=== PATIENT | male | born 1960 | race Caucasian/White ===

== ENCOUNTER → 2016-07-29 | Outpatient (CLI) | payer BC ==
--- NOTE | 2016-07-30 09:49 | XR ---
Right hip HISTORY: Right hip pain 2 views of the right hip Bone mineralization, joint spaces and alignment are maintained. Soft tissues are normal. IMPRESSION: Normal right hip. Hip MRI may be of benefit.
--- NOTE | 2016-07-30 09:50 | XR ---
Lumbosacral spine HISTORY: Right hip pain, low back pain 5 views of the lumbar spine submitted. No comparisons No spondylolysis or spondylolisthesis. Lumbar vertebral bodies show preserved height. Bone mineraliz ation is mildly reduced. There is loss of disc height at L5-S1 with associated vacuum phenomenon, spo ndylosis is noted. Sclerosis present in the posterior elements IMPRESSION: Degenerative disc disease, facet arthropathy, osteopenia
== END | disposition home or self-care (01) ==
LOC: RADXRYALE 08:49
PROVIDERS: ATTEND Internal Medicine
DX: M51.17 Intervertebral disc disorders with radiculopathy, lumbosacral region (principal); M46.87 Other specified inflammatory spondylopathies, lumbosacral region; M85.88 Other specified disorders of bone density and structure, other site
CPT/HCPCS: 72110; 73502

== ENCOUNTER 2017-10-10 15:42 | Emergency (ER) | payer BC ==
[2017-10-10 15:48] VITALS: BP 186/93; PULSE 68; RESP 18; TEMP 98.1
[2017-10-10] MEDS ORDERED: DIPH,PERTUS(ACELL)TETVAC-LF 0.5 ML VIAL IM ONE (16:11)
--- NOTE | 2017-10-10 16:24 | ED ---
Animal Bite HPI - General Chief Complaint: Animal Bite Stated Complaint: DOG BITE MIDDLE FINGER RT HAND Time Seen by Provider: 10/10/17 15:59 Source: patient, RN notes reviewed Mode of arrival: ambulatory Limitations: no limitations - History of Present Illness Initial Comments: This a 57-year-old male presents emergency Department chief complaint of dog bite. Patient states his own dog bit his hand. Patient has noted laceration to right hand third digit. Patient is right-hand dominant. Patient's unsure when his last tetanus was. Patient states his dog is up-to-date vaccinations. Patient has full range of motion of his finger. - Related Data Previous Rx's Medication Instructions Recorded Amoxicillin/Potassium Clav 1 tab PO Q12HR #20 tab 10/10/17 [Augmentin 875-125 Tablet] Allergies Allergy/AdvReac Type Severity Reaction Status Date / Time No Known Allergies Allergy Verified 10/10/17 15:48 Review of Systems ROS Statement: Those systems with pertinent positive or pertinent negative responses have been documented in the HPI. ROS Other: All systems not noted in ROS Statement are negative. Past Medical History Past Medical History: No Reported History History of Any Multi-Drug Resistant Organisms: None Reported Past Surgical History: No Surgical Hx Reported Past Psychological History: No Psychological Hx Reported Smoking Status: Never smoker Past Alcohol Use History: None Reported Past Drug Use History: None Reported General Exam Limitations: no limitations General appearance: alert, in no apparent distress Head exam: Present: atraumatic, normocephalic, normal inspection Respiratory exam: Present: normal lung sounds bilaterally. Absent: respiratory distress, wheezes, rales, rhonchi, stridor Cardiovascular Exam: Present: regular rate, normal rhythm, normal heart sounds. Absent: systolic murmur, diastolic murmur, rubs, gallop, clicks Extremities exam: Present: other (Right hand third digit there is a 3 cm V- shaped laceration patient for range of motion there is no tendon involvement patient is neurovascularly intact) Skin exam: Present: warm, dry Course Vital Signs 10/10/17 15:45 Temperature 98.1 F Pulse Rate 68 Respiratory 18 Rate Blood Pressure 186/93 O2 Sat by Pulse 97 Oximetry Procedures - Laceration Laceration #1 Time Out Performed: Yes Indication: laceration Site: hand (Right hand third digit) Size (cm): 3 Description: irregular Depth: simple, single layer Anesthetic Used: lidocaine 1%, without epi Anesthesia Technique: local infiltration Amount (mls): 4 Pre-repair: wound explored, irrigated extensively, deep structures intact Type of Sutures: nylon Size of Sutures: 4-0 Number of Sutures: 4 Technique: simple, interrupted Patient Tolerated Procedure: well, no complications Medical Decision Making - Medical Decision Making 57-year-old male present emergency from for abdominal bite to his right hand third digit. Patient dog is up-to-date vaccination. Patient was updated on his tetanus. He'll be discharged with Augmentin for antibiotic prophylaxis. Patient had 3 cm-laceration which was loosely approximated. I did explain that the laceration was left loosely open for infection. Patient follow-up tomorrow for recheck and return for any worsening symptoms. Disposition Clinical Impression: Dog bite, Finger laceration Disposition: HOME SELF-CARE Condition: Stable Instructions: Animal Bite (ED) Additional Instructions: Please return to the Emergency Department if symptoms worsen or any other concerns. Prescriptions: Amoxicillin/Potassium Clav [Augmentin 875-125 Tablet] 1 tab PO Q12HR #20 tab Is patient prescribed a controlled substance at d/c from ED?: No Referrals: Latrice Marsh MD [Primary Care Provider] - 1-2 days Time of Disposition: 16:41
--- NOTE | 2017-10-10 16:45 | XR ---
EXAMINATION TYPE: XR finger RT DATE OF EXAM: 10/10/2017 COMPARISON: NONE HISTORY: Pain TECHNIQUE: 3 view right middle finger FINDINGS: There appears be some soft tissue swelling. Degenerative joint changes are present. A displaced fracture is not identified. IMPRESSION: 1. No acute osseous abnormality. 2. Follow-up exam can be performed 7-10 days from acute trauma for continued pain.
== END 2017-10-10 17:01 | disposition home or self-care (01) ==
LOC: EC 15:42
DX: S61.212A Laceration without foreign body of right middle finger without damage to nail, initial encounter (principal); Z23 Encounter for immunization; W54.0XXA Bitten by dog, initial encounter; Y92.009 Unspecified place in unspecified non-institutional (private) residence as the place of occurrence of the external cause
CPT/HCPCS: 12002; 90471; 90715; 99283

== ENCOUNTER → 2019-08-07 | Outpatient (CLI) | payer BC ==
[2019-08-07 17:42] LABS: Basophils % (A) 1 %; Eosinophils # (A) 0.1 k/uL (0-0.7); Eosinophils % (A) 1 %; HGB 13.9 gm/dL (13.0-17.5); Lymphocytes # (A) 2.3 k/uL (1.0-4.8); Lymphocytes % (A) 30 %; MCH 31.1 pg (25.0-35.0); MCHC 33.9 g/dL (31.0-37.0); Mean Platelet Volume 7.3; Monocytes # (A) 0.6 k/uL (0-1.0); Monocytes % (A) 7 %; Neutrophils # (A) 4.6 k/uL (1.3-7.7); Neutrophils % (A) 59 %; Platelet Count 276 k/uL (150-450); RBC 4.45 m/uL (4.30-5.90); RDW 12.6 % (11.5-15.5); WBC 7.8 k/uL (3.8-10.6)
[2019-08-07 17:44] LABS: African American GFR (CKD) >90 (>60 ml/min/1.73 sqM); Anion Gap 6 mmol/L; Blood Urea Nitrogen 16 mg/dL (9-20); Calcium 9.3 mg/dL (8.4-10.2); Carbon Dioxide 29 mmol/L (22-30); Chloride 101 mmol/L (98-107); Glucose 89 mg/dL (74-99); Non-African American GFR(CKD) >90 (>60 ml/min/1.73 sqM); Potassium 4.4 mmol/L (3.5-5.1); Sodium 136 mmol/L (137-145)
== END | disposition home or self-care (01) ==
LOC: LABPAT 16:48
PROVIDERS: ATTEND Urology
DX: Z01.818 Encounter for other preprocedural examination (principal); C61 Malignant neoplasm of prostate; I10 Essential (primary) hypertension; E86.0 Dehydration; Z01.812 Encounter for preprocedural laboratory examination
CPT/HCPCS: 36415; 80048; 85025; 86850; 86900; 86901; 93005

== ENCOUNTER 2019-08-15 09:56 | Day surgery (SDC) | payer BC ==
[2019-08-09 15:13] VITALS: BMI 30.9
--- NOTE | 2019-08-15 08:25 | P.GSHP ---
History of Present Illness H&P Date: 08/09/19 Chief Complaint: Prostate cancer The patient is a 58-year-old white male whose PSA level urvashi from 3.565 in June 2016 to 5.560 in June 2019. He has no family history of prostate cancer, and was relatively free of voiding symptoms. MEGAN revealed left-sided asymmetrical enlargement. Prostate ultrasound revealed a prostate volume of 24.4 mL, with an 11 mm hypoechoic lesion seen within the left peripheral zone. 3 of 12 biopsies showed Santino 7 adenocarcinoma. [place] 4+3 disease was seen at the left lateral base and left mid, while the left base biopsy showed Santino 3+4 disease (60%). The Polaris score is 3.3. I had a lengthy discussion with the patient and his family, and he has elected to undergo a right nerve sparing robotic-assisted laparoscopic prostatectomy (RALP) with bilateral pelvic lymphadenectomy. - Constitutional Constitutional: Denies chills, Denies fever - Cardiovascular Cardiovascular: Reports high blood pressure - Gastrointestinal Gastrointestinal: Denies nausea, Denies vomiting - Genitourinary (Male) Genitourinary: Reports as per HPI, Denies erectile dysfunction Past Medical History Past Medical History: Hypertension Additional Past Medical History / Comment(s): Prostate Cancer History of Any Multi-Drug Resistant Organisms: None Reported Additional Past Surgical History / Comment(s): Open right inguinal hernia repair in 2014 Past Psychological History: No Psychological Hx Reported Smoking Status: Never smoker Past Alcohol Use History: None Reported Past Drug Use History: None Reported - Past Family History Father Family Medical History: Cancer Medications and Allergies Home Medications Medication Instructions Recorded Confirmed Type Lisinopril [Prinivil] 10 mg PO HS 08/09/19 08/09/19 History Allergies Allergy/AdvReac Type Severity Reaction Status Date / Time No Known Allergies Allergy Verified 08/09/19 15:06 Surgical - Exam - General well developed, well nourished, no distress - Neck no masses, trachea midline - Respiratory normal respiratory effort - Abdomen Abdomen: soft, non tender, no guarding, no rigid, no rebound - Genitourinary normal penis with no external lesions, testicles non-tender right: scrotal mass/hydrocele - Rectum Rectum: normal sphincter tone, no masses, other (Prostate asymmetry L>R) - Psychiatric oriented to time, oriented to person, oriented to place, speech is normal, memory intact Assessment and Plan (1) Malignant neoplasm of prostate Status: Acute Code(s): C61 - MALIGNANT NEOPLASM OF PROSTATE SNOMED Code(s): 465892694 Plan: Right nerve sparing RALP with bilateral pelvic lymphadenectomy. I explained in great detail the potential risks, which include anesthesia, bleeding, infection, bowel injury, neurovascular injury, urinary leak, lymphocele, vesical neck contracture, and urethral stricture. The possibility of post-prostatectomy urinary incontinence and erectile dysfunction despite preservation of the right neurovascular bundle was discussed in detail. He is aware of the possible need to convert to an open procedure. He has also been advised of the possibility of treatment failure, and the possible need for adjuvant therapy.
[~2019-08-15 09:56] MED LIST: DEXAMETHASONE SOD PHOSPHATE 10 MG/ML 1 ML VIAL IV ONE; HEPARIN SODIUM,PORCINE 5,000 UNIT/ML 1 ML VIAL SQ ONE; LIDOCAINE 1% (10MG/ML) FOR IV START INTRADERMA PRN; MIDAZOLAM 2 MG/2 ML VIAL IV PRN; ONDANSETRON 4 MG/2 ML VIAL IVP ONE; fentaNYL (PF) 50 MCG/ML 2 ML AMP IV PRN
[2019-08-15] MEDS ORDERED: LIDOCAINE 1% (10MG/ML) FOR IV START INTRADERMA ONE (10:40)
[2019-08-15] MEDS: LACTATED RINGERS 1,000 ML IV SCH (10:40)
[2019-08-15] MEDS ORDERED: MIDAZOLAM 2 MG/2 ML VIAL ONE (11:22)
[2019-08-15] MEDS ORDERED: PROPOFOL 10 MG/ML 20 ML VIAL IV ONE (11:22)
[2019-08-15] MEDS ORDERED: GLYCOPYRROLATE 0.2 MG/ML 2 ML VIAL ONE (11:22)
[2019-08-15] MEDS ORDERED: SUCCINYLCHOLINE CHLORIDE 100 MG/5 ML SYR IV ONE (11:22)
[2019-08-15] MEDS ORDERED: NEOSTIGMINE 1 MG/ML 10 ML VIAL ONE (11:22)
[2019-08-15] MEDS ORDERED: HYDROmorphone (PF) 1 MG/ML ONE (11:22)
[2019-08-15] MEDS ORDERED: fentaNYL (PF) 50 MCG/ML 2 ML AMP ONE (11:22)
[2019-08-15] MEDS ORDERED: LIDOCAINE 1% INJ 10MG/ML (20 ML MDV) ONE (11:22)
[2019-08-15] MEDS ORDERED: ROCURONIUM BROMIDE 10 MG/ML 5 ML VIAL IV ONE (11:22)
[2019-08-15] MEDS ORDERED: BUPIVACAINE (PF) 0.25% 30 ML VIAL SQ ONE ×4 (12:06→15:55)
[2019-08-15] MEDS ORDERED: LACTATED RINGERS 1,000 ML IV ONE ×2 (15:34→15:54)
[2019-08-15] MEDS ORDERED: ONDANSETRON 4 MG/2 ML VIAL IVP PRN (15:55)
[2019-08-15] MEDS ORDERED: HYDROmorphone 1 MG/ML 1 ML SYRINGE IVP PRN (15:55)
--- NOTE | 2019-08-15 16:25 | P.OP ---
Date of Procedure: 08/15/19 Preoperative Diagnosis: Adenocarcinoma of the Prostate Postoperative Diagnosis: Same Procedure(s) Performed: Right nerve-sparing Robotic-assisted laparoscopic prostatectomy (RALP) with bilateral pelvic lymphadenectomy Anesthesia: BE Surgeon: Ashwin Allen Enameler #1: Porfirio Contreras Estimated Blood Loss (ml): 250 IV fluids (ml): 1,900 Condition: stable Disposition: PACU Indications for Procedure: The patient is a 58-year-old white male whose PSA level urvashi from 3.565 in June 2016 to 5.560 in June 2019. He has no family history of prostate cancer, and was relatively free of voiding symptoms. MEGAN revealed left-sided asymmetrical enlargement. Prostate ultrasound revealed a prostate volume of 24.4 mL, with an 11 mm hypoechoic lesion seen within the left peripheral zone. 3 of 12 biopsies showed Santino 7 adenocarcinoma. [place] 4+3 disease was seen at the left lateral base and left mid, while the left base biopsy showed [place] 3+4 disease (60%). The Polaris score is 3.3. I had a lengthy discussion with the patient and his family, and he has elected to undergo a right nerve sparing robotic-assisted laparoscopic prostatectomy (RALP) with bilateral pelvic lymphadenectomy. Operative Findings: No evidence of extraprostatic disease. Description of Procedure: The patient was taken in the operating room and placed in the dorsal lithotomy position, with his legs supported in Dante stirrups. He was carefully positioned on a beanbag for stability. The abdomen and external genitalia were prepped and draped sterilely. A Busch catheter was inserted. The Veress needle was passed through the anterior abdominal wall immediately cephalad to the umbilicus, and insufflation was performed to a pressure of 20 mm Hg. Once insufflation was performed, the Veress needle was removed and a supraumbilical incision was made, through which a 12 mm camera port was placed. Under camera guidance, 3 8 mm robotic ports were placed, 2 on the left and one on the right. An additional 12 mm port was placed on the right lateral side for use as an trust operations assistant port. A 5 mm port was placed to the right of the camera port for suction. The patient was placed in Trendelenburg position, and docking was then performed to the [email or web address] system utilizing a 4-arm approach. The abdomen was examined. The sigmoid colon was mobilized out of the pelvis. The peritoneum was incised lateral to the medial umbilical ligaments bilaterally, exposing the pubis. The peritoneum was then incised across the midline, allowing the bladder flap to be taken down. The endopelvic fascia was opened bilaterally, and muscular attachments from the urogenital diaphragm were swept away from the prostate. Bilateral pelvic lymphadenectomies were performed in the standard fashion. The peritoneal incisions were extended in a cephalad direction, and the vas deferens were divided bilaterally. Margins of dissection were the bifurcation of the iliac vessels proximally, the circumflex iliac vein distally, the external iliac artery laterally, and the obturator nerve medially. A combination of sharp and blunt dissection was used. Care was taken to avoid any neurovascular injury, and the use of monopolar electrocautery was avoided immediately adjacent to neurovascular structures. The lymphatic package was clipped distally. No enlarged lymph nodes were encountered. There were no complications. The vesical neck was incised transversely, down to the lumen. The Busch catheter was brought out through the anterior vesical neck incision and was used for traction. The posterior aspect of the vesical neck was incised, such that the full-thickness of the vesical neck was divided. The anterior layer of the Denonvilliers fascia was incised, exposing the vas deferens. Each were isolated and divided. Next, each of the seminal vesicles were dissected away from adjacent tissues, and vascular attachments were cauterized and divided. The posterior leaf of Denonvilliers fascia was incised transversely, allowing entry into the plane between the prostate and rectum. With lateral spreading, this plane was developed down to the apex. This exposed the lateral vascular pedicles bilaterally. A nerve-sparing procedure was performed on the right, immediately adjacent to the prostatic capsule. This was in a relatively avascular plane, thus avoiding the need for clip placement. On the left side, the lateral vascular pedicle was clipped and divided in an antegrade fashion, down to the apex. The remaining apical attachments were swept away from the prostate. The dorsal venous complex was incised, as well as periurethral tissue. At this point, only the urethra remained intact. This was transected immediately distal to the prostatic apex using cold scissors. The specimen was placed within a specimen bag. The dorsal venous complex was sutured using a V-Loc suture in a running fashion. The suture was passed through the periosteum of the pubis periurethral support. A small area of bleeding was noted to arise from the right lateral vascular pedicle. This was controlled using a 3-0 Vicryl suture in a [id number] fashion. Care was taken to meticulously ligate the bleeder and avoid injury to the neurovascular bundle. A second V-Loc suture was then used to place the Jassi stitch, incorporating the rhabdosphincter and the edge of Denonvilliers fascia. This allowed the bladder to be taken down to the urethra, leaving the vesical neck immediately adjacent to the urethra. The vesicourethral anastomosis was then performed using a V-Loc suture in a running fashion. After completing the anastomosis, an attempt was made to pass an 18-[place] Busch catheter. Resistance was met at the site of the anastomosis, but a 16-[place] coud tip catheter was easily placed. Approximately 150 mL of 0.9 normal saline were instilled into the bladder. No extravasation of irrigant from the vesicourethral anastomosis was noted. Surgicel was placed over the vascular pedicles, and Tisseel was sprayed into the pelvis over the vascular pedicles, dorsal vein, and vesicourethral anastomosis. The patient was returned to the supine position. Undocking was performed, and the specimen bag sutures were passed through the camera port. After removing all the ports and allowing all of the CO2 to be released from the peritoneal cavity, the camera port incision was enlarged to allow removal of the surgical specimen. The fascia of this incision was then closed using 0 Vicryl suture in a running fashion. Each of the skin incisions were then closed using 4-0 Monocryl suture in a subcuticular fashion. Marcaine was injected at each of the incision sites. Dermabond was applied to each incision. The Busch catheter was connected to gravity drainage. All sponge and needle counts were correct. The patient tolerated the procedure well was taken to the recovery room in stable condition.
[2019-08-15] MEDS: KETOROLAC 30 MG/ML 1 ML VIAL IVP PRN (16:45)
[2019-08-15] MEDS: HYDROmorphone 0.5 MG/0.5 ML SYRINGE IVP PRN ×2 (17:00→17:15)
[2019-08-15] MEDS: DEXTROSE 5%-0.45% NACL 1,000 ML IV SCH (17:35)
[2019-08-15] MEDS: HEPARIN SODIUM,PORCINE 5,000 UNIT/ML 1 ML VIAL SQ SCH (20:18)
[2019-08-15] MEDS ORDERED: LISINOPRIL 10 MG TAB PO SCH (21:00)
[2019-08-16] MEDS: DEXTROSE 5%-0.45% NACL 1,000 ML IV SCH ×2 (00:53→08:48)
[2019-08-16] MEDS: KETOROLAC 30 MG/ML 1 ML VIAL IVP PRN ×2 (01:22→08:49)
[2019-08-16] MEDS ORDERED: HYDROcodone/APAP 5-325MG 1 EACH TAB PO PRN ×2 (06:20)
[2019-08-16 08:10] VITALS: BP 131/72; PULSE 60; RESP 16; TEMP 98.2
[2019-08-16] MEDS: HEPARIN SODIUM,PORCINE 5,000 UNIT/ML 1 ML VIAL SQ SCH (08:48)
--- NOTE | 2019-08-17 08:49 | P.DS ---
Providers Expected date of discharge: 08/16/19 Attending physician: Ashwin Allen Primary care physician: Latrice Marsh - Discharge Diagnosis(es) (1) Malignant neoplasm of prostate Current Visit: No Status: Acute Hospital Course: On the day of admission, the patient underwent an uncomplicated right nerve sparing robotic-assisted laparoscopic prostatectomy (RALP) with bilateral pelvic lymphadenectomy. The perioperative course was unremarkable. He remained afebrile with stable vital signs. On the first postoperative morning, he reported mild incisional discomfort. He denied nausea and was tolerating diet. The incisions were clean, dry, and intact. The Busch catheter was draining clear yellow urine. Procedures: RALP with bilateral pelvic lymphadenectomy in 08/15/2019. Patient Condition at Discharge: Good Plan - Discharge Summary Discharge Rx Participant: Yes New Discharge Prescriptions: New Ciprofloxacin HCl [Cipro] 250 mg PO Q12HR #6 tablet Hydrocodone/Acetaminophen [[place] 5-325] 1 - 2 each PO Q4HR PRN #6 tab PRN Reason: Pain No Action Lisinopril [Prinivil] 10 mg PO HS Discharge Medication List Lisinopril [Prinivil] 10 mg PO HS 08/09/19 [History] Ciprofloxacin HCl [Cipro] 250 mg PO Q12HR #6 tablet 08/15/19 [Rx] Hydrocodone/Acetaminophen [[place] 5-325] 1 - 2 each PO Q4HR PRN #6 tab 08/15/19 [Rx] Follow up Appointment(s)/Referral(s): Ashwin Allen MD [STAFF PHYSICIAN] - 08/24/19 Activity/Diet/Wound Care/Special Instructions: Discharge home with Busch catheter. Instruct patient to use overnight drainage bag as well as urinary leg bag. Okay to shower. Diet as tolerated. No lifting, driving, or strenuous activity. Reassure patient that abdominal wall ecchymosis and penoscrotal swelling are normal. Instruct patient to begin taking antibiotics one day prior to Busch catheter removal. Discharge Disposition: HOME SELF-CARE
== END 2019-08-16 15:00 | disposition home or self-care (01) ==
LOC: OR 09:56 → 4SSUR 16:57 → OR 08-16 15:00
PROVIDERS: ATTEND Urology
DX: C61 Malignant neoplasm of prostate (principal); I10 Essential (primary) hypertension; Z98.890 Other specified postprocedural states; Z79.899 Other long term (current) drug therapy
CPT/HCPCS: 38571; 55866; S2900; 86850; 86900; 86901; 88307; 88309